=== PATIENT | female | born 1970 | race American Indian/Alaskan Native ===

== ENCOUNTER 2017-12-14 06:13 | Day surgery (SDC) | payer BC ==
[2014-09-15 11:52] VITALS: BMI 34.7
[2017-12-14] MEDS ORDERED: Propofol 10 mg/ml Inj (20 ML) ONE (07:50)
[2017-12-14] MEDS ORDERED: Midazolam 2 MG/2 ML VIAL ONE (07:50)
[2017-12-14] MEDS ORDERED: ePHEDrine 50 mg/ml Inj ONE (08:39)
[2017-12-14] MEDS ORDERED: Lidocaine Hydrochloride 5 ML INJ ONE (08:40)
[2017-12-14] MEDS ORDERED: HYDROmorphone 0.5 mg/0.5 ml ISec IVP PRN (08:52)
--- NOTE | 2017-12-14 08:52 | PCM.SURG1 ---
Surgeon's Initial Post Op Note - Surgeon's Notes Surgeon: Crys Venegas MD Medical Scientist: none Type of Anesthesia: General LMA Pre-Operative Diagnosis: Abnormal uterien bleeding, leiomyomaa Operative Findings: 10 week size uteurs, no adnexal masses b/l, bilaterally ostia visluzed with 5-6cm submucsoal myoma attached along entire fundus protruding completely into cavity, myousre device used until procedure aborted of fluid deficiti of 1500. myosure represenative present. myoma size significantly decreaesd in size. urine output 25cc clear yello wurine Post-Operative Diagnosis: same as above Operation Performed: Hysteroscopic myomectomy, dilation and currettage Specimen/Specimens Removed: submucosal myoma, endocervical curretting, endmetiral currettings Estimated Blood Loss: EBL {In ML}: 20 Blood Products Given: N/A Drains Used: No Drains Post-Op Condition: Good Date of Surgery/Procedure: 12/14/17 Time of Surgery/Procedure: 08:00
[2017-12-14] MEDS ORDERED: Lactated Ringer's 1,000 ML IV ONE (10:00)
[2017-12-14 11:24] VITALS: O2SAT 100
[2017-12-14 12:12] VITALS: BP 107/58; PULSE 75; RESP 16; TEMP 97.5
--- NOTE | 2017-12-15 05:49 | OP ---
PROCEDURE DATE: 12/14/2017 SURGEON: Crys Venegas MD BUTTER PRODUCTION SUPERVISOR: None. TYPE OF ANESTHESIA: General LMA. PREOPERATIVE DIAGNOSIS: Abnormal uterine bleeding, leiomyoma. POSTOPERATIVE DIAGNOSIS: Abnormal uterine bleeding, submucosal myoma. OPERATIVE FINDINGS: A 10-week size uterus, no adnexal masses. Bilateral ostia visualized. A 5 cm submucosal myoma attached along the entire fundus protrudes up to the uterine cavity. MyoSure device used until aborted. Fluids, 1500 mL of normal saline. MyoSure motor vehicle field representative was present. Myoma site significantly decreased in size. Urine output 25 mL of clear yellow urine. OPERATION PERFORMED: Hysteroscopic myomectomy, dilation and curettage. SPECIMEN REMOVED: Submucosal myoma, endometrial curettings, endocervical curetting. ESTIMATED BLOOD LOSS: 20 mL. BLOOD PRODUCTS: None. COMPLICATIONS: None. DESCRIPTION OF PROCEDURE: The patient was taken to the operating room where she was given general anesthesia. Once it was found to be adequate, she was positioned on the operating table in dorsal supine position with the legs supported using stirrups. The patient was then prepped and draped in the usual sterile fashion. A time-out was confirmed correct patient and correct procedure. Bimanual exam was performed with the above-mentioned findings. A red rubber catheter was then inserted into the urethra to drain the bladder. Following this, a Baig retractor was placed on the anterior and posterior fornix of the vagina, cervix was adequately visualized. A single-tooth tenaculum was placed on the anterior lip of the cervix and endocervical curettings were obtained with a [facility] cure[facility] and sent to Pathology on [facility]. The uterus then sounded to 8 cm. Following this, the cervix was sequentially dilated to allow for introduction of a 5 mm hysteroscope under direct visualization using normal saline as the distention media. The bilateral ostia were visualized with an enlarged submucosal myoma, less than 5 cm to 6 cm, incised. The MyoSure device was then inserted under direct visualization, and the MyoSure device was then used to carefully resect the myoma, carefully as possible until fluid deficit of 1500 mL. The procedure was then aborted due to the fluid deficit, and there was substantial reduction of the myoma site to approximately 2 cm to 3 cm. Following this, the MyoSure device was then removed and hysteroscope was then removed. A gentle curettage of 360 degrees until gritty texture was noted. The specimen was sent to Pathology. All instruments were removed. There was good hemostasis at the tenaculum puncture sites. At the end of the procedure, all needle, sponge and instrument counts were noted and correct x2. The patient tolerated the procedure well and was transferred to the recovery room in stable condition. Crys Venegas MD
== END 2017-12-14 11:53 | disposition home or self-care (01) ==
LOC: C.SDS 06:13
PROVIDERS: ATTEND Obstetrics & Gynecology
DX: D25.0 Submucous leiomyoma of uterus (principal); N93.9 Abnormal uterine and vaginal bleeding, unspecified; N94.6 Dysmenorrhea, unspecified
CPT/HCPCS: 58561; 88305; J2250; J2704; J3010; J7120

== ENCOUNTER 2018-05-12 08:44 | Day surgery (SDC) | payer BC ==
[2018-04-12 12:52] VITALS: BMI 33.2
[2018-05-12] MEDS ORDERED: HYDROmorphone 0.5 mg/0.5 ml ISec IVP PRN (10:57)
[2018-05-12] MEDS ORDERED: Lactated Ringer's 1,000 ML IV SCH (11:00)
[2018-05-12 11:10] VITALS: O2SAT 100
[2018-05-12 12:21] VITALS: BP 107/66; PULSE 72; RESP 18; TEMP 98
--- NOTE | 2018-05-12 12:29 | PCM.SURG1 ---
Surgeon's Initial Post Op Note - Surgeon's Notes Surgeon: Crys Venegas MD Dowel Inspector: none Type of Anesthesia: General LMA Pre-Operative Diagnosis: abnormal uterine bleeding, submcsal myoma Operative Findings: anterverted utuers, bilatelr ostia visluzed, subucmosal declan enlarged myoma resected with myosure, good hemostaias Post-Operative Diagnosis: saem as above Operation Performed: Hysterospcy myomectomy, dilation and currettage Specimen/Specimens Removed: endocervical currettind, endometrial currettings, submcusaol myoma Estimated Blood Loss: EBL {In ML}: 10 Blood Products Given: N/A Drains Used: No Drains Post-Op Condition: Good Date of Surgery/Procedure: 05/12/18 Time of Surgery/Procedure: 11:00
--- NOTE | 2018-05-12 23:54 | OP ---
PROCEDURE DATE: 05/12/2018 PREOPERATIVE DIAGNOSES: Abnormal uterine bleeding, submucosal myoma. POSTOPERATIVE DIAGNOSES: Abnormal uterine bleeding, submucosal myoma. OPERATIVE FINDINGS: Anteverted uterus, bilateral ostia visualized, submucosal myoma enlarged, resected with MyoSure, good hemostasis. PROCEDURE: Hysteroscopic myomectomy, dilation and curettage. SPECIMEN REMOVED: Endocervical curettings, endometrial curettings, and submucosal myoma. SURGEON: Crys Venegas MD. SAFETY LEADER: None. ANESTHESIA: General LMA. ESTIMATED BLOOD LOSS: 10 mL. BLOOD PRODUCTS: None. DESCRIPTION OF PROCEDURE: The patient was taken to the operating room where she was given general anesthesia. Once found to be adequate, she was placed on the operating table in dorsal supine position with legs supported using stirrups. The patient was prepped and draped in the usual sterile fashion. Time-out confirmed correct procedure and correct patient. Bimanual exam was performed with the above-mentioned findings. A Baig retractor was placed in anterior posterior fornix of the vagina. Cervix was adequately visualized. A single-tooth tenaculum was placed in the anterior lip of the cervix. Endocervical curettings were obtained with a Brandynian curette and sent to pathology on [facility]. The uterus was then sounded to 8 cm following which the cervix was sequentially dilated to allow for introduction of the hysteroscope under direct visualization using normal saline as distention media. Following this, bilateral ostia was visualized and a large submucosal mass noted at the anterior cavity approximately large 4 plus cm. MyoSure device was then inserted under direct visualization. The mass was carefully resected up until fluid deficit of 750 mL. Following this, the MyoSure device was then removed. Gentle curettage was done. The hysteroscope was then reentered. There was good hemostasis noted. All instruments were removed. There was good hemostasis at the tenaculum puncture site. At the end of the procedure, all needle, sponge, and instrument counts were noted and correct x2. The patient tolerated the procedure well and was transferred to the recovery room in stable condition. Crys Venegas MD [facility] # [id number]
== END 2018-05-12 14:57 | disposition home or self-care (01) ==
LOC: C.SDS 08:44
PROVIDERS: ATTEND Obstetrics & Gynecology
DX: D25.0 Submucous leiomyoma of uterus (principal)